=== PATIENT | female | born 1975 | race African-American/Black ===

== ENCOUNTER 2019-01-15 11:25 | Emergency (ER) | payer BC ==
[~2019-01-15] VITALS: Ht 160 cm; Wt 77.1 kg
--- NOTE | 2019-01-15 11:25 | NUR ---
Placed in room 07 . Placed on electronic device monitor, blood pressure machine and pulse oximeter. To gown for exam. Side rails up.
[2019-01-15 11:34] VITALS: BP_SYST 169
--- NOTE | 2019-01-15 11:38 | NUR ---
Pt AAOx4 ambulated into ED c/o palpitations, dizziness, blurred vision, nausea, tingling to bilateral hands x 2 days. Pt denies vomiting/diarrhea/SOB. Skin dry and warm, breathing even and unlabored. Pt reports a similar episode "a few months ago" which resolved on its own after "sleeping it off." No other injuries/complaints per pt/noted. Will continue to monitor.
--- NOTE | 2019-01-15 11:41 | NUR ---
ER Dr. Paz at bedside examining patient.
--- NOTE | 2019-01-15 11:43 | NUR ---
Lab at bedside for blood draw
[2019-01-15] MEDS ORDERED: ONDANSETRON 4 MG ODT TAB PO ONE (11:45)
[2019-01-15] MEDS ORDERED: KETOROLAC TROMETHAMINE 60 MG/2 ML VIAL IM ONE (11:45)
[2019-01-15 11:53] LABS: BASOPHILS % (AUTO) 0.9 % (0.0-2.0); EOSINOPHILS # (AUTO) 0.1 K/uL (0.0-0.4); EOSINOPHILS % (AUTO) 2.5 % (0.0-4.0); HEMATOCRIT 40.4 % (36-48); HEMOGLOBIN 13.1 g/dL (12.0-16.0); LYMPHOCYTES # (AUTO) 1.7 K/uL (1.0-5.5); LYMPHOCYTES % (AUTO) 44.5 % (20.5-51.5); MEAN CORPUSCULAR HEMOGLOBIN 25 pg (27-31); MEAN CORPUSCULAR HGB CONC 32 % (32-36); MEAN CORPUSCULAR VOLUME 78 fL (79.0-98.0); MONOCYTES # (AUTO) 0.3 K/uL (0.0-1.0); NEUTROPHILS # (AUTO) 1.7 K/uL (1.8-7.7); NEUTROPHILS % (AUTO) 44.1 % (40.0-70.0); PLATELET COUNT (AUTO) 259 K/uL (130-430); RED BLOOD CELL COUNT(AUTO) 5.21 MIL/uL (4.2-6.2); WHITE BLOOD COUNT (AUTO) 3.8 K/uL (4.8-10.8)
[2019-01-15 12:08] LABS: CREATININE 0.76 mg/dL (0.55-1.30); POTASSIUM 3.8 mmol/L (3.5-5.1)
[2019-01-15 12:24] LABS: ALBUMIN 3.3 g/dL (3.4-4.8); THYROID STIMULATING HORMONE 23.18 uIu/mL (0.34-4.82); TOTAL BILIRUBIN 0.7 mg/dL (0.0-1.0)
--- NOTE | 2019-01-15 12:45 | NUR ---
Patient in [facility], resting comfortably.
--- NOTE | 2019-01-15 12:55 | NUR ---
Patient states that symptoms have resolved, and feels better.
[2019-01-15 13:20] VITALS: BP_SYST 169
--- NOTE | 2019-01-15 13:20 | NUR ---
Patient given written and verbal discharge instructions and verbalizes understanding. ER MD discussed with patient the results and treatment provided. Patient in stable condition. ID arm band removed. Patient educated on pain management and to follow up with PMD. Pain Scale 0/10. Opportunity for questions provided and answered. Medication side effect fact sheet provided.
== END 2019-01-15 13:20 | disposition home or self-care (01) ==
LOC: SED 11:25
DX: E03.9 Hypothyroidism, unspecified (principal); I10 Essential (primary) hypertension
CPT/HCPCS: 36415; 80053; 81025; 84443; 85025; 93005; 96372; 99284; J1885; Q0162

== ENCOUNTER 2022-12-13 08:31 | Emergency (ER) | payer OTHER, BC ==
[~2022-12-13] VITALS: Ht 160 cm; Wt 70.8 kg
[2022-12-13 08:38] VITALS: BP_SYST 152
--- NOTE | 2022-12-13 09:01 | NUR ---
LOT [id number] EXP 2023-12-13
[2022-12-13] MEDS ORDERED: IBUP-1969 PO (10:34)
[2022-12-13] MEDS ORDERED: SOM350 PO (10:34)
--- NOTE | 2022-12-13 10:41 | NUR ---
Patient given written and verbal discharge instructions and verbalizes understanding. ER MD discussed with patient the results and treatment provided. Patient in stable condition. Rx of given. Patient educated on pain management and to follow up with PMD. Pain Scale [0]. Opportunity for questions provided and answered. Medication side effect fact sheet provided.
--- NOTE | 2022-12-13 10:42 | NUR ---
PT AMBULATED WITH STEADY GAIT, APPEARS TO BE IN NO ACUTE DISTRESS NOTED AT THIS TIME.
== END 2022-12-13 10:41 | disposition home or self-care (01) ==
LOC: SED 08:31
DX: S13.4XXA Sprain of ligaments of cervical spine, initial encounter (principal); S09.90XA Unspecified injury of head, initial encounter; I10 Essential (primary) hypertension; Z79.899 Other long term (current) drug therapy; V89.2XXA Person injured in unspecified motor-vehicle accident, traffic, initial encounter; Y93.89 Activity, other specified; Y92.89 Other specified places as the place of occurrence of the external cause; Y99.8 Other external cause status
CPT/HCPCS: 70450-TC; 72125-TC; 76376; 81025; 99284